=== PATIENT | female | born 1990 | race African-American/Black ===

== ENCOUNTER 2019-10-10 05:20 | Observation (INO) | payer OTHER ==
[~2019-10-10] VITALS: Ht 158.8 cm; Wt 59.0 kg
[2019-10-10] VITALS (8 sets, daily range): BP systolic 99–113; BP diastolic 39–75
[2019-10-10] MEDS ORDERED: Dexamethasone 20mg/5ml IVP SCH (05:45)
[2019-10-10] MEDS ORDERED: ceFAZolin sod 1 GM in NS 55 ML IVPB SCH (05:45)
[2019-10-10] MEDS ORDERED: TULANA0.35 MG PO (06:20)
[2019-10-10] MEDS ORDERED: Thrombin 5000 units TOPIC ONE (06:30)
[2019-10-10] MEDS ORDERED: Gelfoam Size TOPIC ONE (06:30)
[2019-10-10] MEDS ORDERED: Bacitracin 50000 Units Vial ONE (06:30)
[2019-10-10] MEDS ORDERED: Rocuronium Bromide 50mg/5ml Inj IV ONE (06:38)
[2019-10-10] MEDS ORDERED: Dexamethasone 4mg/ml vial ONE (06:46)
[2019-10-10] MEDS ORDERED: Sodium Chloride 10ml vial INJ ONE (06:46)
[2019-10-10] MEDS ORDERED: Lidocaine 1% MPF 10mg/ml 5ml ONE ×2 (06:46→08:59)
[2019-10-10] MEDS ORDERED: Lidocaine 1% Plain 30 ml INJ ONE (06:47)
[2019-10-10] MEDS ORDERED: fentaNYL 100 mcg/2 mL IV ONE ×2 (06:48→08:35)
[2019-10-10] MEDS ORDERED: Neostigmine 1mg/ml 10ml Inj ONE (07:00)
[2019-10-10] MEDS ORDERED: LR 1000ml ONE (07:00)
[2019-10-10] MEDS ORDERED: Propofol 1,000mg/ 100ml btl IV ONE (07:00)
[2019-10-10] MEDS ORDERED: Sterile Water Irrig 1000ml IRRIG ONE (07:00)
[2019-10-10] MEDS ORDERED: NS Irrig 1000ml ONE (07:00)
[2019-10-10] MEDS ORDERED: LR 1000ml 1,000 ML IVLG SCH (07:08)
--- NOTE | 2019-10-10 07:10 | Anethesia Preoperative Eval ---
Anesthesia Pre-op PMH/ROS General Date of Evaluation: Oct 10, 2019 Time of Evaluation: 07:11 Anesthesiologist: Oscar ASA Score: ASA 1 Mallampati Score Class I : Soft palate, uvula, fauces, pillars visible Class II: Soft palate, uvula, fauces visible Class III: Soft palate, base of uvula visible Class IV: Only hard plate visible Mallampati Classification: Class I Surgeon: Ari Diagnosis: Neck Pain Surgical Procedure: ACDF C5-6,C6-7 Anesthesia History: none Family History: no anesthesia problems Allergies: Coded Allergies: No Known Allergies (Unverified , 10/09/19) Medications: see eMAR Patient NPO?: Yes NPO Date: Oct 09, 2019 NPO Time: 2358 Anesthesia Pre-op Phys. Exam Physician Exam Last Vital Signs Date Time Temp Pulse Resp B/P (MAP) Pulse Ox O2 Delivery O2 Flow Rate FiO2 10/10/19 06:01 97.5 69 20 104/61 (75) 100 10/10/19 05:57 Room Air Constitutional: NAD Neurologic: CN 2-12 intact Cardiovascular: RRR Respiratory: CTA Gastrointestinal: S/NT/ND Airway Exam Mallampati Score: Class I MO: full ROM: limited Teeth: intact Anesthesia Pre-op A/P Labs Urine Test Test 10/10/19 05:35 Urine HCG, Qualitative Negative (NEGATIVE) Risk Assessment & Plan Assessment: ASA 1 Plan: GA, SED, GlideScope Go Status Change Before Surgery: No Pre-Antibiotics Dru Grams Ancef IV Given Within 1 Hr of Incision: Yes Time Given: 07:31 Mahamed Moore MD Oct 10, 2019 07:10
[2019-10-10] MEDS ORDERED: LORazepam Inj 2mg/ml 1ml IV PRN (07:15)
[2019-10-10] MEDS ORDERED: Hydromorphone 0.5mg/0.5ml inj IVP PRN (07:15)
[2019-10-10] MEDS ORDERED: Metoclopramide 10mg/2ml Inj IVP PRN (07:15)
[2019-10-10] MEDS ORDERED: Labetalol 5mg/ml 20ml vial IV PRN (07:15)
[2019-10-10] MEDS ORDERED: Acetaminophen (Non formulary) 100 ML IV ONE (07:15)
[2019-10-10] MEDS ORDERED: oxyCODONE HCL/Acetaminophen 5/325mg ORAL PRN (07:15)
[2019-10-10] MEDS ORDERED: HYDROcodone/Acetamin 7.5/325 tab ORAL PRN (07:15)
[2019-10-10] MEDS ORDERED: HYDROcodone/Acetamin 5/325 tab ORAL PRN ×2 (07:15→11:15)
[2019-10-10] MEDS ORDERED: Meperidine 50mg/ml Inj(FOR RIGORS ONLY) IVP PRN (07:15)
[2019-10-10] MEDS ORDERED: fentaNYL 100 mcg/2 mL IV PRN (07:15)
[2019-10-10] MEDS ORDERED: Midazolam 2mg/2ml Inj IVP PRN (07:15)
[2019-10-10] MEDS ORDERED: Ketorolac 30mg Inj IV PRN ×2 (07:15)
[2019-10-10] MEDS ORDERED: DiphenhydrAMINE 50mg/ml Inj IVP PRN (07:15)
[2019-10-10] MEDS ORDERED: Atropine Sulfate 0.4mg/ml inj IVP PRN (07:15)
--- NOTE | 2019-10-10 07:22 | Pre-Procedure Note/Attestation ---
Pre-Procedure Note/Attestation Complete Prior to Procedure Planned Procedure: not applicable Procedure Narrative: C5-C6, C6-C7 ACDF anterior plate Indications for Procedure Pre-Operative Diagnosis: HNP C5-C6, C6-C7 Attestation I attest that I discussed the nature of the procedure; its benefits; risks and complications; and alternatives (and the risks and benefits of such alternatives ), prior to the procedure, with the patient (or the patient's legal industrial relations representative). I attest that, if there was a reasonable possibility of needing a blood transfusion, the patient (or the patient's legal industrial relations representative) was given the [place] Department of Health Services standardized written summary, pursuant to the Balta Aneesh Blood Safety Act ([place] Health and Safety Code # 1645, as amended). I attest that I re-evaluated the patient just prior to the surgery and that there has been no change in the patient's H&P, except as documented below: Ronaldo Chapman MD Oct 10, 2019 07:22
--- NOTE | 2019-10-10 08:25 | Immediate Post-Op Evaluation ---
Immediate Post-Op Evalulation Immediate Post-Op Evalulation Procedure: ACDF C5-6,C6-7 Date of Evaluation: Oct 10, 2019 Time of Evaluation: 10:12 IV Fluids: 1100 LR Blood Products: 0 Estimated Blood Loss: 30 Urinary Output: 0 Blood Pressure Systolic: 99 Blood Pressure Diastolic: 39 Pulse Rate: 91 Respiratory Rate: 16 O2 Sat by Pulse Oximetry: 100 Temperature (Fahrenheit): 97.8 Pain Score (1-10): 2 Nausea: No Vomiting: No Complications 0 Patient Status: awake, reacts, patent, extubated, none Hydration Status: adequate Dru Grams Ancef IV Given Within 1 Hr of Incision: Yes Time Given: 07:31 Mahamed Moore MD Oct 10, 2019 08:25
[2019-10-10] MEDS ORDERED: Glycopyrrolate 0.2mg/ml 1ml Vial ONE (09:12)
[2019-10-10] MEDS ORDERED: Naloxone 0.4mg/ml Inj ONE (09:25)
[2019-10-10] MEDS ORDERED: Chloraseptic Spray 20mL Bottle ORAL PRN ×2 (09:45→10:45)
[2019-10-10] MEDS ORDERED: HYDROmorphone 1mg/ml Carpuject SUBQ PRN ×2 (09:45→11:15)
[2019-10-10] MEDS ORDERED: Morphine Sulfate 4mg/ml Inj (IV USE ONLY) IM PRN (09:45)
[2019-10-10] MEDS ORDERED: oxyCODONE 5mg IR tab ORAL PRN ×2 (09:45→11:15)
[2019-10-10] MEDS ORDERED: D5 1/2NS 1,000 ML IV SCH (10:15)
[2019-10-10] MEDS ORDERED: Naloxone 0.4mg/ml Inj IVP PRN (10:15)
--- NOTE | 2019-10-10 10:15 | Brief Operative Note ---
Immediate Post Operative Note Operative Note Pre-op Diagnosis: HNP C5-C6, C6-C7 Procedure: ACDF C5-C6, C6-7 plate, bioactive, interbody device Post-op Diagnosis: same as pre-op Findings: consistent w/pre-op dx studies Surgeon: Ari LAU [employer] Integrator: Geni QUINTEROS Anesthesiologist: Oscar LAU Anesthesia: general Specimen: yes Complications: none Condition: stable Fluids: anesthesia Estimated Blood Loss: minimal Drains: none Implant(s) used?: Yes Ronaldo Chapman MD Oct 10, 2019 10:15
[2019-10-10] MEDS ORDERED: Chloraseptic Spray 20mL Bottle ORAL ONE (10:37)
--- NOTE | 2019-10-10 11:00 | NUR ---
NURSE NOTES: Patient arrived on unit via hospital bed. Stable. Denies pain or SOB. Patient oriented to room, call light, and unit. Patient encouraged to use call light for assistance, verbalized understanding. Patient's surgical site is c/d/i. Ice pack placed over neck. Will encourage ambulation while awake. Patient does not have the urge to void at this time, will assist patient as tolerated. Patient is in bed in locked and lowest position with call light within reach. Will continue to monitor.
--- NOTE | 2019-10-10 11:11 | Diagnostic Imaging Report ---
INDICATION: Pain, intraoperative TECHNIQUE: Intraoperative imaging Fluoroscopy time: 15.6 seconds Total dose: 0.04441 mGym2 Total number of images: 4 COMPARISON: None FINDINGS: 6 intraoperative imaging demonstrates surgical tool projected at the level of the C6-7 disc. Subsequent images demonstrate placement of anterior fusion hardware and disc spacers bridging C5-C7. IMPRESSION: Intraoperative imaging, as described
--- NOTE | 2019-10-10 11:11 | Diagnostic Imaging Report ---
INDICATION: Pain, intraoperative TECHNIQUE: Intraoperative imaging Fluoroscopy time: 15.6 seconds Total dose: 0.02367 mGym2 Total number of images: 4 COMPARISON: None FINDINGS: 6 intraoperative imaging demonstrates surgical tool projected at the level of the C6-7 disc. Subsequent images demonstrate placement of anterior fusion hardware and disc spacers bridging C5-C7. IMPRESSION: Intraoperative imaging, as described
--- NOTE | 2019-10-10 12:59 | NUR ---
NURSE NOTES: Patient voided, no c/o burning or discomfort.
--- NOTE | 2019-10-10 13:15 | NUR ---
NURSE NOTES: Patient ambulated with physical therapy. TOlerated well. Neck ROM instructions given to patient, verbalized understanding.
--- NOTE | 2019-10-10 13:30 | NUR ---
PT EVALUATION NOTE Patient seen for initial evaluation. Patient presents s/p cervical surgery. Patient educated in cervical precautions and log rolling techniques. Patient requires supervision for bed mobility, transfers and ambulation without assistive device. Patient will benefit from skilled inpatient PT intervention to address safety and compliance with cervical spine precautions with mobility tasks. Recommend discharge home once medically cleared by MD. No DME needs identified at this time. Addendum: 10/10/19 at 1429 by ERIK RICH PT Amended: Links added.
--- NOTE | 2019-10-10 14:32 | NUR ---
NURSE NOTES: Patient discharged home as ordered. Stable. Denies pain or SOB. Patient was given thorough discharge instructions by RN, verbalized understanding. Patient teaching given about symptoms to report. Patient has all belongings. Patient stated that she has pain medication at home prescribed by Dr. Chapman, thorough medication teaching given by Dr. Pruitt earlier in shift. Surgical dressing c/d/i. IV removed without complications. Patient assisted into private vehicle by staff without incident.
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
[2019-10-10] MEDS ORDERED: Docusate 100mg cap ORAL SCH (18:00)
--- NOTE | 2019-10-11 05:15 | Operative Note - Dictated ---
DATE OF OPERATION: 10/10/2019 SURGEON: Ronaldo Chapman, PhD, M.D. 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 OPERATIVE PROCEDURES: 1. Anterior cervical diskectomy, C5-C6 and C6-C7. 2. Placement of interbody reconstructive titanium graft, C5-C6 and C6-C7. 3. Placement of osteopromotive material in combination with local autograft, C5-C6 and C6-C7. 4. Anterior internal fixation plate with screws not immigrant to the interbody grafts, bilateral C5 and bilateral C7. 5. Intraoperative fluoroscopy interpreted by surgeon. 6. SSEP monitoring. 7. EMG monitoring. REFRIGERATOR CRATER: NELI Bentley. ANESTHESIOLOGIST: Mahamed Moore M.D. ANESTHESIA: General with intubation. ESTIMATED BLOOD LOSS: Minimum. SPECIMEN: Disk fragments to pathology. COMPLICATIONS: None. POSTOPERATIVE CONDITION: Good/stable. DESCRIPTION OF PROCEDURE: The patient was brought to the operating room and after general anesthesia intubation, IV antibiotics and IV Decadron were administered 30 minutes prior to incision time. The patient was appropriately positioned with the Halter chin traction of 10 pounds after maintaining neutral on detecting cervical spine. Marker was taped on the right lateral aspect of the neck and a cross-table fluoroscopic image was utilized to determine the correct level for incision placement. Position was marked and recorded. Marker removed. Marker was placed into the skin fold at the appropriate interval. A sterile marking pen left. Anterior cervical spine was sterilely prepped and draped free in the usual sterile fashion. Left transverse incision was previously marked, sharply placed in the dermis and epidermis. Electrocautery dissection was carried through the subcutaneous tissue to the level of the platysmas muscle. It was identified, isolated, and transected in line with the incision. Blunt dissection was carried medial to the left sternocleidomastoid muscle and carotid sheath through the deep cervical and pretracheal fascia to the midline between the right and left longus colli muscles. The space was identified. A spinal needle bent at 90-degree angle so as to avoid penetration greater than 3 mm into the disk space. It was placed under high-power magnification into disk space. Cross-table fluoroscopic image under sterile condition was obtained demonstrating the correct level at C6-C7. Level was marked with annulotomy and pen markers sterile. Retractors were placed deep to longus colli muscles. The subperiosteal elevation not exceeding 3 mm medial to lateral and right and left longus colli muscles. Annulotomy was performed followed with diskectomy to the posterior longitudinal ligament under high-power magnification. The endplates were denuded of cartilage to bleeding bone with maintenance of subchondral bone integrity with Midas Karsten bur and Karsten dissection and curettage. Posterior annulotomy was performed with foraminotomy right at the C5-C6 and C6-C7 foramen. The patient remained stable at all times. No EMG activity. SSEP monitoring stable. Appropriate graft size determined with trials. It stops to avoid penetration/impaction to the spinal cord. Appropriate graft was selected and packed with osteopromotive material with local autograft. Tamped into position. Of note is that the implant introducer agitates penetration of the graft posterior to 1 mm of the anterior vertebral body. Fluoroscopic imaging in plane demonstrating correct alignment and lordotic correction. Introducer was removed. Wound was irrigated with antibiotic-containing saline. Attention was turned to the C5-C6 interval where longus colli muscles were elevated subperiosteally, not exceeding 3 mm from medial to lateral extent. Retractors placed. Annulotomy followed with diskectomy to the posterior longitudinal ligament with denuding at the end-plates of cartilage with Midas Karsten bur dissection and curettage. Subchondral bone integrity maintained. Annulotomy with right foraminotomy performed. No dural tears or leaks at anytime during the procedure. SSEP monitoring stable. No EMG activity. Graft determination with trials was undertaken following the graft act. Osteopromotive material with local autograft was tamped into position. Graft insertion utilizing instrumentation was noted at C5-C6 and C6-C7. Excellent alignment and position obtained under direct observation as well as fluoroscopic guidance. Ten pounds of traction on the cervical spine was removed. Anterior internal plate fixation in compressive fashion was undertaken appropriately at C5-C6 and C6-C7. AP lateral radiograph/fluoroscopy images were obtained saved/printed demonstrating excellent alignment and positioning. Retractors were removed. Exploration of the wound revealed no obvious excoriation or laceration of vital structures. Wound was further irrigated with antibiotic-containing saline. Closure applied. Reapproximation of platysmas muscle with Vicryl suture material. No evidence of penetrating collagen on dermis/epidermis followed with transverse surgical strips. Sterile bandage was applied and maintained in place with tape. The patient was awakened, extubated in the operating room, and transported to postop recovery in good stable condition. Ronaldo Chapman M.D. DR: DENNYS JOB#: [id number] CC:
[2019-10-11 09:26] VITALS: BP 116/74
--- NOTE | 2019-10-11 09:26 | 48 Hour Post Anesthesia Eval ---
Post Anesthesia Evaluation Procedure: ACDF C5-6,C6-7 Date of Evaluation: Oct 10, 2019 Time of Evaluation: 14:20 Blood Pressure Systolic: 116 0: 74 Pulse Rate: 68 Respiratory Rate: 18 Temperature (Fahrenheit): 97.6 O2 Sat by Pulse Oximetry: 98 Airway: patent Nausea: No Vomiting: No Pain Intensity: 2 Hydration Status: adequate Cardiopulmonary Status: stable Mental Status/LOC: patient returned to baseline Follow-up Care/Observations: n/a Post-Anesthesia Complications: none Follow-up care needed: ready to discharge Sourav Salas MD Oct 11, 2019 09:26
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
== END 2019-10-10 16:30 | disposition home or self-care (01) ==
LOC: SUR 05:20 → 3E 11:35
DX: M50.120 Mid-cervical disc disorder, unspecified level (principal)
CPT/HCPCS: 22856; 22858; 36415; 72040; 76000; 81025; 86850; 86900; 86901; 97116; 97161; 97530; C1713; J0690; J1100; J2001; J2250; J2310; J2405; J2704; J2710; J3010; J7120; 94003; 94150